=== PATIENT | female | born 2000 | race American Indian/Alaskan Native ===

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

== ENCOUNTER 2020-02-13 21:40 | Emergency (ER) | payer SELFPAY ==
[2020-02-13] MEDS ORDERED: SODIUM CHLORIDE 0.9% 1000 ML 1,000 ML IV ONE (21:57)
[2020-02-13 22:30] LABS: Basophils % (Auto) 0.2 % (0.0-1.8); Hematocrit 20.9 % (30.3-42.9); Hemoglobin 6.7 gm/dl (10.1-14.3); Lymphocytes # (Auto) 1.7 K/mm3 (1.2-5.4); Mean Corpuscular HGB Conc 32 % (30-34); Mean Corpuscular Volume 75 fl (79-97); Monocytes # (Auto) 0.6 K/mm3 (0.0-0.8); Monocytes % (Auto) 5.9 % (0.0-7.3); Platelet Count 234 K/mm3 (140-440); Red Blood Count 2.78 M/mm3 (3.65-5.03)
--- NOTE | 2020-02-13 22:41 | Emergency Department Report ---
ED Female HPI - General Chief complaint: Vaginal Bleeding Stated complaint: MISCARRAGE Time Seen by Provider: 02/13/20 21:54 Source: patient, EMS Mode of arrival: Stretcher Limitations: Other - History of Present Illness Initial comments: 20-year-old female presents to the hospital with vaginal bleeding x2 days. LMP in November and patient has not taken a test. Yesterday she started having vaginal bleeding and which worsened today. Patient has used 3-4 super pads with passage of clots and complains of suprapubic cramping. She also comp lains of generalized weakness. Patient has 2 previous pregnancies with 3 living children (one twin ) no previous miscarriage, ectopic, or abortions. - Related Data Home Medications Medication Instructions Recorded Confirmed Last Taken Vit Calc,Iron,Folic 1 tab PO DAILY 10/02/17 10/02/17 Unknown [ Vitamins] Previous Rx's Medication Instructions Recorded Last Taken Type Ferrous Sulfate [Feosol 325 MG tab] 325 mg PO QDAY #30 tablet 02/14/20 Unknown Rx Ibuprofen [Motrin] 800 mg PO Q8HR PRN #30 tablet 02/14/20 Unknown Rx Allergies Allergy/AdvReac Type Severity Reaction Status Date / Time No Known Allergies Allergy Verified 02/13/20 22:13 ED Review of Systems ROS: Stated complaint: MISCARRAGE Other details as noted in HPI Comment: All other systems reviewed and negative ED Past Medical Hx - Past Medical History Hx Hypertension: No Hx Diabetes: No Hx Deep Vein Thrombosis: No Hx Renal Disease: No Hx Sickle Cell Disease: No Hx Seizures: No Hx Asthma: No Hx HIV: No - Social History Smoking Status: Never Smoker - Medications Home Medications: Home Medications Medication Instructions Recorded Confirmed Last Taken Type Vit Calc,Iron,Folic 1 tab PO DAILY 10/02/17 10/02/17 Unknown History [ Vitamins] Ferrous Sulfate [Feosol 325 MG tab] 325 mg PO QDAY #30 tablet 02/14/20 Unknown Rx Ibuprofen [Motrin] 800 mg PO Q8HR PRN #30 tablet 02/14/20 Unknown Rx ED Physical Exam - General Limitations: Other - Other Other exam information: General: Generalized weakness Head: Atraumatic Eyes: normal appearance ENT: Moist mucous membranes Neck: Normal appearance, no midline tenderness Chest: Clear to auscultation bilaterally CV: Regular rate and rhythm Abdomen: Soft, normal bowel sounds, mild suprapubic tenderness, nondistended, no rebound or guarding exam performed around 2:45 AM: Vaginal vault full of clots which were mostly removed. No brisk vaginal hemorrhage noted. Back: Normal inspection Extremity: Normal inspection, full range of motion Neuro: Alert O x 3, no facial asymmetry, speech clear, no gross focal motor sensory deficit Psych: Appropriate behavior Skin: No rash ED Course Vital Signs 02/13/20 02/13/20 02/13/20 22:04 22:06 23:47 Temperature 98.6 F Pulse Rate 94 H 98 H Respiratory 17 20 20 Rate Blood Pressure Blood Pressure 93/44 102/59 [Right] O2 Sat by Pulse 98 100 100 Oximetry 02/14/20 02/14/20 02/14/20 00:29 00:35 00:40 Temperature 98.4 F 98 F 98.2 F Pulse Rate 106 H 97 H 98 H Respiratory 12 15 16 Rate Blood Pressure 105/54 113/57 109/57 Blood Pressure [Right] O2 Sat by Pulse 100 100 100 Oximetry 02/14/20 02/14/20 02/14/20 00:45 00:59 01:01 Temperature 98 F 98.1 F 98 F Pulse Rate 95 H 89 90 Respiratory 16 15 14 Rate Blood Pressure 107/59 112/67 103/68 Blood Pressure [Right] O2 Sat by Pulse 99 100 100 Oximetry 02/14/20 03:54 Temperature Pulse Rate 88 Respiratory 15 Rate Blood Pressure Blood Pressure 140/81 [Right] O2 Sat by Pulse 99 Oximetry - Reevaluation(s) Reevaluation #1: 02/14/20 03:15 Hemoglobin improved after transfusion. heart rate and blood pressure also improved and patient reports feeling better - Consultations Consultation #1: 02/14/20 02:06 case d/w Dacia Belcher Baker Test, if bleeding decreasing pt may f/u for hct trending. Methergine not recommended at this time iron pills suggested ED Medical Decision Making - Lab Data Result diagrams: 02/14/20 02:28 Lab Results 02/13/20 02/13/20 02/13/20 Range/Units 22:05 22:05 22:05 WBC 10.3 (4.5-11.0) K/mm3 RBC 2.78 L (3.65-5.03) M/mm3 Hgb 6.7 L (10.1-14.3) gm/dl Hct 20.9 L (30.3-42.9) % MCV 75 L (79-97) fl MCH 24 L (28-32) pg MCHC 32 (30-34) % RDW 21.0 H (13.2-15.2) % Plt Count 234 (140-440) K/mm3 Lymph % (Auto) 16.0 (13.4-35.0) % [place] % (Auto) 5.9 (0.0-7.3) % Eos % (Auto) 0.0 (0.0-4.3) % Baso % (Auto) 0.2 (0.0-1.8) % Lymph # 1.7 (1.2-5.4) K/mm3 [place] # 0.6 (0.0-0.8) K/mm3 Eos # 0.0 (0.0-0.4) K/mm3 Baso # 0.0 (0.0-0.1) K/mm3 Seg Neutrophils % 77.9 H (40.0-70.0) % Seg Neutrophils # 8.0 H (1.8-7.7) K/mm3 HCG, Quant 9664 H (0-4) mIU/mL Blood Type A POSITIVE Antibody Screen Negative Crossmatch See Detail 02/14/20 Range/Units 02:28 WBC (4.5-11.0) K/mm3 RBC (3.65-5.03) M/mm3 Hgb 7.8 L (10.1-14.3) gm/dl Hct 24.3 L (30.3-42.9) % MCV (79-97) fl MCH (28-32) pg MCHC (30-34) % RDW (13.2-15.2) % Plt Count (140-440) K/mm3 Lymph % (Auto) (13.4-35.0) % [place] % (Auto) (0.0-7.3) % Eos % (Auto) (0.0-4.3) % Baso % (Auto) (0.0-1.8) % Lymph # (1.2-5.4) K/mm3 [place] # (0.0-0.8) K/mm3 Eos # (0.0-0.4) K/mm3 Baso # (0.0-0.1) K/mm3 Seg Neutrophils % (40.0-70.0) % Seg Neutrophils # (1.8-7.7) K/mm3 HCG, Quant (0-4) mIU/mL Blood Type Antibody Screen Crossmatch - Radiology Data Radiology results: report reviewed ULTRASOUND OBSTETRIC Indication: vag bleeding, passing clots Findings: No intrauterine is seen. There is minimal free fluid in the cul-de-sac. The right ovary measures 2.7 cm and the left ovary measures 1.7 cm. Endometrial stripe measures 7 mm. There is a 1.5 cm cyst in the left ovary. Impression: No intrauterine is seen. - Medical Decision Making After clots removed from vaginal vault patient observed and did not have any sig nificant bleeding. H&H improved with 1 unit of blood. Patient feeling better. She will be discharged with outpatient [employer] PROTECTION SPECIALIST follow-up iron tablets, and Motrin - Differential Diagnosis Menorrhagia, ectopic, miscarriage Critical Care Time: No Critical care attestation.: If time is entered above; I have spent that time in minutes in the direct care of this critically ill patient, excluding procedure time. ED Disposition Clinical Impression: Miscarriage Disposition: DC-01 TO HOME OR SELFCARE Is pt being admited?: No Does the pt Need Aspirin: No Condition: Stable Instructions: Spontaneous Miscarriage (ED) Additional Instructions: Take the medication as prescribed. Follow-up with your doctor or doctor/clinic provided. Return if symptoms worsen as indicated by your discharge instructions. It is important that you follow-up with a RADIATION PROTECTION SPECIALIST doctor to continue to monitor your blood work to ensure that your hormone level continues to decrease until completion of your miscarriage. Prescriptions: Ferrous Sulfate [Feosol 325 MG tab] 325 mg PO QDAY #30 tablet Ibuprofen [Motrin] 800 mg PO Q8HR PRN #30 tablet PRN Reason: Pain , Severe (7-10) Referrals: JACKIE MAYER MD [Staff Physician] - 3-5 Days Time of Disposition: 05:12
[2020-02-13] MEDS ORDERED: SODIUM CHLORIDE 0.9% 500 ML 500 ML IV ONE (22:44)
--- NOTE | 2020-02-14 00:55 | Ultrasound Report ---
ULTRASOUND OBSTETRIC Indication: vag bleeding, passing clots Findings: No intrauterine is seen. There is minimal free fluid in the cul-de-sac. The right ovary willie sures 2.7 cm and the left ovary measures 1.7 cm. Endometrial stripe measures 7 mm. There is a 1.5 cm cyst in the left ovary. Impression: No intrauterine is seen. Signer Name: Lloyd Chase MD Signed: 02/14/2020 12:50 AM Workstation Name: [id number]
[2020-02-14] MEDS ORDERED: KETOROLAC 30 MG/1 ML INJ IV ONE (03:02)
[2020-02-14 03:04] LABS: Hematocrit 24.3 % (30.3-42.9); Hemoglobin 7.8 gm/dl (10.1-14.3)
[2020-02-14 05:31] VITALS: BP 117/62
== END 2020-02-14 05:34 | disposition home or self-care (01) ==
LOC: ED 21:40
DX: O20.0 Threatened abortion (principal); Z3A.01 Less than 8 weeks gestation of pregnancy
CPT/HCPCS: 36415; 36430; 76801; 76817; 84702; 85014; 85018; 85025; 86850; 86900; 86901; 86920; 96374; 99285; J1885; J7040; P9016